=== PATIENT | male | born 1950 | race African-American/Black ===

== ENCOUNTER 2023-08-20 16:02 | Emergency (ER) | payer BC ==
[~2023-08-20] VITALS: Ht 177.8 cm; Wt 104.3 kg
[2023-08-20] MEDS ORDERED: OXYMETAZOLINE HCL NASAL SPRAY 30 ML BOTTLE NS ONE (18:00)
[2023-08-20 19:01] VITALS: BP 146/83; TEMP 98.4; O2SAT 97
== END 2023-08-20 19:02 | disposition home or self-care (01) ==
LOC: ER 16:10
DX: R04.0 Epistaxis (principal)

== ENCOUNTER 2023-08-21 21:11 | Emergency (ER) | payer BC ==
[~2023-08-21] VITALS: Ht 177.8 cm; Wt 103.4 kg
[2023-08-21 22:55] VITALS: TEMP 97.8
[2023-08-21] MEDS: OXYMETAZOLINE HCL NASAL SPRAY 30 ML BOTTLE NS ONE (23:01)
[2023-08-21] MEDS ORDERED: OXYMETAZOLINE HCL NASAL SPRAY 30 ML BOTTLE NS ONE (23:01)
[2023-08-21 23:52] VITALS: BP 121/81; O2SAT 100
== END 2023-08-21 23:52 | disposition home or self-care (01) ==
LOC: ER 21:16
DX: R04.0 Epistaxis (principal)